=== PATIENT | male | born 1965 | race Hispanic/Latino ===

== ENCOUNTER → 2024-01-13 | Outpatient (CLI) | payer OTHER | END | disposition home or self-care (01) | LOC: RAH 13:38 | PROVIDERS: ATTEND Orthopaedic Surgery | DX: Z01.818 Encounter for other preprocedural examination (principal); S22.088A Other fracture of T11-T12 vertebra, initial encounter for closed fracture; S32.018A Other fracture of first lumbar vertebra, initial encounter for closed fracture; M47.815 Spondylosis without myelopathy or radiculopathy, thoracolumbar region; X58.XXXA Exposure to other specified factors, initial encounter; Y93.89 Activity, other specified; Y92.89 Other specified places as the place of occurrence of the external cause; Y99.8 Other external cause status | CPT/HCPCS: 72128; 72131 ==

== ENCOUNTER 2024-01-21 06:08 | Day surgery (SDC) | payer OTHER ==
[2024-01-16 12:54] LABS: BASOPHILS # (AUTO) 0.04 K/uL (0.00-0.20); BASOPHILS % (AUTO) 0.8 % (0.0-5.0); EOSINOPHILS # (AUTO) 0.23 K/uL (0.00-0.70); EOSINOPHILS % (AUTO) 4.7 % (0.0-8.0); HEMATOCRIT 44.2 % (42-54); IMMATURE GRANULOCYTE ABSOLUTE 0.06 K/uL (0-1); LYMPHOCYTES # (AUTO) 2.1 K/uL (1.0-4.8); MEAN CORPUSCULAR HEMOGLOBIN 30.5 pg (27.0-33.0); MEAN CORPUSCULAR HGB CONC 34.4 g/dL (32.0-36.0); MEAN CORPUSCULAR VOLUME 88.8 fL (79-99); MONOCYTES # (AUTO) 0.8 K/uL (0.1-1.0); MONOCYTES % (AUTO) 15.6 % (3.0-13.0); NEUTROPHILS # (AUTO) 1.8 K/uL (1.8-7.7); NEUTROPHILS % (AUTO) 35.7 % (40.0-77.0); PLATELET COUNT (AUTO) 264 K/uL (130-400); RED BLOOD CELL COUNT(AUTO) 4.98 MIL/uL (4.50-6.20); RED CELL DISTRIBUTION WIDTH 13.3 % (11.0-15.5); WHITE BLOOD COUNT (AUTO) 4.9 K/uL (4.8-10.8)
[2024-01-16 13:06] LABS: CREATININE 1.1 mg/dL (0.5-1.3); POTASSIUM 4.4 mmol/L (3.5-5.1)
[2024-01-16 13:07] LABS: INR 1.1 (0.85-1.15); PROTHROMBIN TIME 12.9 SEC (9.6-11.6)
[2024-01-16 13:08] LABS: PARTIAL THROMBOPLASTIN TIME 29.5 SEC (26.3-35.5)
[2024-01-16 13:20] VITALS: BP 135/79; PULSE 64; RESP 18
[~2024-01-21] VITALS: Ht 172.7 cm; Wt 116.2 kg
[2024-01-21] VITALS (16 sets, daily range): BP systolic 113–147; BP diastolic 62–82; PULSE 62–80; RESP 15–19
[~2024-01-21 06:08] MED LIST: CYCL10TA16 PO; IBUP-2077 PO; METO-409 PO
[2024-01-21] MEDS ORDERED: LACTATED RINGERS 1000ML 1,000 ML IV ONE (06:24)
[2024-01-21] MEDS ORDERED: PROPOFOL 10 MG/ML 20ML VIAL IV ONE (07:16)
[2024-01-21] MEDS ORDERED: MIDAZOLAM HCL 1 MG/ML 2ML VIAL ONE (07:16)
[2024-01-21] MEDS ORDERED: FENTANYL CITRATE PF 50 MCG/1 ML 2ML VIAL ONE (07:17)
[2024-01-21] MEDS ORDERED: ROCURONIUM BROMIDE 10MG/1ML 5ML VL ONE (07:17)
[2024-01-21] MEDS ORDERED: LIDOCAINE PF 100MG/5ML (2%) SYRINGE 5ML ONE (07:17)
[2024-01-21] MEDS ORDERED: ROPIVACAINE 0.5% 5MG/ML 30ML ONE ×2 (07:20→07:45)
[2024-01-21] MEDS: CEFAZOLIN SODIUM 2 GM VIAL ONE (08:15)
[2024-01-21] MEDS ORDERED: EPHEDRINE SULFATE 50 MG/ML AMPULE ONE (08:16)
[2024-01-21] MEDS ORDERED: DEXAMETHASONE SOD PHOSPHATE 10MG/ML 1ML VIAL ONE (08:20)
[2024-01-21] MEDS ORDERED: ONDANSETRON 4MG INJ ONE (08:20)
[2024-01-21] MEDS: EPINEPHRINE PF 1MG (1:1,000) 1 MG/ML AMP ONE (08:30)
[2024-01-21] MEDS ORDERED: PHENYLEPHRINE HCL 10 MG/ML 1ML VIAL IV ONE (08:30)
[2024-01-21] MEDS ORDERED: ACETAMINOPHEN 1,000 MG/100 ML VIAL IV ONE (09:03)
[2024-01-21] MEDS ORDERED: NEOSTIGMINE METHYLSULFATE 1MG/ML IV ONE (09:19)
[2024-01-21] MEDS ORDERED: GLYCOPYRROLATE 0.2 MG/ML 5 ML VIAL ONE (09:19)
[2024-01-21] MEDS ORDERED: EPINEPHRINE PF 1MG (1:1,000) 1 MG/ML AMP ONE ×4 (09:56→10:32)
[2024-01-21] MEDS ORDERED: HYDR-4060 PO (11:39)
== END 2024-01-21 13:15 | disposition home or self-care (01) ==
LOC: DAH 06:08
PROVIDERS: ATTEND Orthopaedic Surgery
DX: M75.122 Complete rotator cuff tear or rupture of left shoulder, not specified as traumatic (principal); M89.8X1 Other specified disorders of bone, shoulder; M65.812 Other synovitis and tenosynovitis, left shoulder; M25.812 Other specified joint disorders, left shoulder; M25.512 Pain in left shoulder; G47.30 Sleep apnea, unspecified; K21.9 Gastro-esophageal reflux disease without esophagitis; I10 Essential (primary) hypertension; E66.9 Obesity, unspecified; Z68.39 Body mass index [BMI] 39.0-39.9, adult; Z80.9 Family history of malignant neoplasm, unspecified; Z86.73 Personal history of transient ischemic attack (TIA), and cerebral infarction without residual deficits; Z82.49 Family history of ischemic heart disease and other diseases of the circulatory system; Z79.1 Long term (current) use of non-steroidal anti-inflammatories (NSAID); Z79.899 Other long term (current) drug therapy; Z87.891 Personal history of nicotine dependence; Z98.890 Other specified postprocedural states
CPT/HCPCS: 80048; 85025; 85610; 85730; 36415; 87641; 29827; 64415; 29826; 93005; A6260; C1713 ×3; A4663; J7030; A4565; J7120; J3010; J1100; J3490 ×3; J2001; J0171 ×4; J2250; J2704; J2405; J2710; J2795 ×2; J2371; J0690; A6204; C1769; A4930 ×2; A4649 ×3; A4215; A4223; A4213; A4222; A4221; A4600; G0168

== ENCOUNTER 2024-07-10 06:35 | Day surgery (SDC) | payer OTHER ==
[2024-07-07 13:39] LABS: BASOPHILS # (AUTO) 0.06 K/uL (0.00-0.20); EOSINOPHILS % (AUTO) 3.5 % (0.0-8.0); HEMATOCRIT 48.4 % (42-54); IMMATURE GRANULOCYTE ABSOLUTE 0.02 K/uL (0-1); LYMPHOCYTES # (AUTO) 2.2 K/uL (1.0-4.8); LYMPHOCYTES % (AUTO) 38.6 % (21.0-51.0); MEAN CORPUSCULAR HGB CONC 34.7 g/dL (32.0-36.0); MEAN CORPUSCULAR VOLUME 89.3 fL (79-99); MONOCYTES # (AUTO) 0.6 K/uL (0.1-1.0); MONOCYTES % (AUTO) 9.6 % (3.0-13.0); NEUTROPHILS # (AUTO) 2.7 K/uL (1.8-7.7); PLATELET COUNT (AUTO) 286 K/uL (130-400); RED BLOOD CELL COUNT(AUTO) 5.42 MIL/uL (4.50-6.20); RED CELL DISTRIBUTION WIDTH 12.5 % (11.0-15.5); WHITE BLOOD COUNT (AUTO) 5.7 K/uL (4.8-10.8)
[2024-07-07 13:45] VITALS: BP 150/87; PULSE 85; RESP 18; TEMP 98.1
[2024-07-10] VITALS (12 sets, daily range): BP systolic 102–157; BP diastolic 43–93; PULSE 44–68; RESP 13–19; TEMP 97.1–98.2
[~2024-07-10] VITALS: Ht 172.7 cm; Wt 116.4 kg
[~2024-07-10 06:35] MED LIST changes: -CYCL10TA16 PO
[2024-07-10] MEDS: FAMOTIDINE 20MG VIAL IV ONE (06:59)
[2024-07-10] MEDS: acetaMINOPHEN 100 ML ONE (06:59)
[2024-07-10] MEDS ORDERED: ketaMINE HCL 100 MG/ML 5ML VIAL IJ ONE (07:04)
[2024-07-10] MEDS ORDERED: proPOFol 10 MG/ML 20ML VIAL IV ONE (07:11)
[2024-07-10] MEDS ORDERED: LIDOCAINE HCL-MPF 2% 10ML AMP IJ ONE (07:11)
[2024-07-10] MEDS ORDERED: FENTanyl CITRate PF 50 MCG/1 ML 2ML VIAL ONE (07:12)
[2024-07-10] MEDS ORDERED: rocuRONium bROMide 10MG/1ML 5ML VL ONE (07:12)
[2024-07-10] MEDS: LACTATED RINGERS 1000ML 1,000 ML IV ONE (07:24)
[2024-07-10] MEDS: ceFAZolin SODIUM 2 GM VIAL ONE (07:24)
--- NOTE | 2024-07-10 07:25 | EKG ---
[facility] Test Date: 2024-07-10 Test Time: 07:13:59 Pat Name: ELO DOBSON Department: [facility] Room: [facility] Gender: M Department Of Mathematics Chair: [id number] : 1965 Requested By: LEXIS RUBALCAVA Order Number: [id number] Reading MD: Quita Dunbar Measurements Intervals Hatch Rate: 60 P: 12 CT: 161 QRS: -17 QRSD: 85 T: 2 QT: 410 QTc: 410 Interpretive Statements Sinus rhythm Compared to ECG 01/21/2024 07:17:06 No significant changes Electronically Signed On 07-10-2024 13:33:16 COMPUTER PROGRAMMING PROFESSOR by Quita Dunbar Please click the below link to view image of tracing.
[2024-07-10] MEDS ORDERED: ondanSETRON 4MG INJ ONE (08:04)
[2024-07-10] MEDS ORDERED: dexaMETHasone SOD PHOSPHATE 10MG/ML 1ML VIAL ONE (08:04)
[2024-07-10] MEDS ORDERED: NEOSTIGMINE METHYLSULFATE 1MG/ML IV ONE (08:50)
[2024-07-10] MEDS ORDERED: GLYCOPYRROLATE 0.2 MG/ML 5 ML VIAL ONE (08:50)
[2024-07-10] MEDS ORDERED: IBUP-2077 PO (09:02)
[2024-07-10] MEDS ORDERED: ACET-2079 PO (09:02)
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
[2024-07-10] MEDS: MEPERIDINE-PF 25 MG/ML SYG ONE ×2 (09:13→09:21)
[2024-07-10] MEDS: SUGAMMADEX SODIUM 200 MG/2 ML VIAL IV ONE (09:23)
[2024-07-10] MEDS: GLYCOPYRROLATE 0.2 MG/ML 5 ML VIAL ONE (09:30)
--- NOTE | 2024-07-10 10:14 | NUR ---
CRUTCHES GIVEN TO PT, EDUCATIONS PROVIDED, PT ABLE TO DEMONSTRATE CORRECT USE OF CRUTCHES.
== END 2024-07-10 10:27 | disposition home or self-care (01) ==
LOC: DAH 06:35
PROVIDERS: ATTEND Orthopaedic Surgery
DX: S83.242A Other tear of medial meniscus, current injury, left knee, initial encounter (principal); M94.262 Chondromalacia, left knee; M65.862 Other synovitis and tenosynovitis, left lower leg; M25.762 Osteophyte, left knee; M67.52 Plica syndrome, left knee; X58.XXXA Exposure to other specified factors, initial encounter; Y93.89 Activity, other specified; Y92.89 Other specified places as the place of occurrence of the external cause; Y99.8 Other external cause status; Z86.73 Personal history of transient ischemic attack (TIA), and cerebral infarction without residual deficits; E66.9 Obesity, unspecified; Z68.38 Body mass index [BMI] 38.0-38.9, adult; Z98.890 Other specified postprocedural states; Z79.899 Other long term (current) drug therapy
CPT/HCPCS: 80048; 85025; 36415; 29881; 93005; A4663; A4649 ×2; J7120; J3490 ×6; J3010; J1100; J2704; J2405; J2710; J2175 ×2; J0690; A6223; A4215; A4223; A4222; A4221; A6450; A4606